=== PATIENT | male | born 1995 | race African-American/Black ===

== ENCOUNTER 2025-03-08 01:45 | Emergency (ER) | payer OTHER ==
[2025-03-08] MEDS ORDERED: Lidocaine 1% PF 5 ML VIAL ONE (02:38)
[2025-03-08] MEDS ORDERED: Lidocaine Viscous Sol 2% 15 ml UD Cup ONE (04:06)
== END 2025-03-08 04:59 | disposition home or self-care (01) ==
LOC: CSHERS 01:45
DX: S00.462A Insect bite (nonvenomous) of left ear, initial encounter (principal); T16.2XXA Foreign body in left ear, initial encounter; F17.210 Nicotine dependence, cigarettes, uncomplicated; W57.XXXA Bitten or stung by nonvenomous insect and other nonvenomous arthropods, initial encounter
CPT/HCPCS: 69200; 99283